=== PATIENT | female | born 1990 | race Caucasian/White ===

== ENCOUNTER 2024-11-22 15:30 | Emergency (ER) | payer BC ==
[~2024-11-22] VITALS: Ht 157.5 cm; Wt 89.4 kg
[2024-11-22 15:34] VITALS: TEMP 97.5
--- NOTE | 2024-11-22 15:37 | ELECTROCARDIOGRAPH REPORT ---
[facility] Test Date: 2024-11-22 Test Time: 15:35:11 Pat Name: JUMANA WASHINGTON Department: [facility] Patient ID: [facility]-[id number] Room: Gender: F Design Sales Consultant: : [id number] Requested By: TAMMY ZAPATA Order Number: [id number] Reading MD: Measurements Intervals [place] Rate: 85 P: -1 ID: 150 QRS: 60 QRSD: 86 T: 12 QT: 358 QTc: 426 Interpretive Statements Sinus rhythm Borderline T abnormalities, anterior leads Baseline wander in lead(s) II,aVF,V3,V6 Please click the below link to view image of tracing.
[2024-11-22 16:02] LABS: MEAN PLATELET VOLUME 8.4 FL (7.4-10.4); RED CELL DISTRIBUTION WIDTH 12.9 % (11.5-14.5)
--- NOTE | 2024-11-22 16:15 | RADIOLOGY REPORT ---
EXAM: DI CHEST,SINGLE VIEW HISTORY: CP TECHNIQUE: 1 view of the chest COMPARISON: None FINDINGS/IMPRESSION: LUNGS: No pleural effusion, consolidation, or pneumothorax MEDIASTINUM: Unremarkable BONES: No acute osseous abnormality OTHER: None
[2024-11-22 16:25] LABS: CREATININE 0.87 MG/DL (0.40-0.90); PRO BRAIN NATRIURETIC PEPTIDE 33 PG/ML (0-125); TOTAL CARBON DIOXIDE 25.6 MMOL/L (24-32); eCRCL 71 ML/MIN; eGFR 74 ML/MIN
--- NOTE | 2024-11-22 19:36 | Physician Documentation ---
History of Present Illness Chief Complaint: See Chief Complaint Stated Complaint: CP Time Seen by MD: 19:16 Source: patient Mode of Arrival: POV, Ambulatory Exam Limitations: no limitations HPI She presents with multiple medical complaints. She states she has had palpitations lasting sec with no associated dizziness. She has history of ventr icular tachycardia ablation in 2016 and was therefore worried and wanted to come in for an EKG. She states she has had palpitations in the past. Has been evaluated by her fish flipper, Dr. Ledesma and told that her symptoms are not secondary to anything dangerous. Furthermore, planes of heartburn. She was seen in urgent care and given prescription for omeprazole yesterday however has not had time to go pick it up. Complains of intermittent burning in her chest associated with lying down. She has a attempted to take Tums, Dennise-[place] and Pepto-Bismol with no relief. Chest pain or pressure. No dizziness, lightheadedness or syncope. Was asked, but otherwise denies review of systems. Medication Reconciliation Allergies: Coded Allergies: Penicillins (Unverified Allergy, Unknown, RASH, 11/22/24) Sulfa (Sulfonamide Antibiotics) (Unverified Allergy, Unknown, 11/22/24) clindamycin (Unverified Allergy, Unknown, RASH, 11/22/24) codeine (Unverified Allergy, Unknown, 11/22/24) Past Medical History Past Medical History: *CARDIOVASCULAR*, Arrhythmia (Ventricular tachycardia status post ablation) Other Past Surgical History: Ventricular tachycardia ablation Alcohol Use: None Drug Use: none Lives In: Home Past Social History: Patient vapes Review of Systems ROS Complains of intermittent palpitations and heartburn symptoms. No abdominal pain. No nausea, vomiting. No diarrhea. Was asked, but otherwise denies review of systems except specifically documented in HPI. Physical Exam Vital Signs: RN Vital Signs have been reviewed: Yes, Temperature: 97.5, Source: Temporal, Heart Rate: 71, Respiratory Rate: 16, BP: 108/65, Pulse Oximetry: 99, Weight: 89.400 Oxygen Flow Rate: 0 Pulse Oximetry Reflects: adequate oxygenation Physical Exam General: Awake, alert, oriented. No apparent distress Neck: Supple. Normal range of motion. No JVD Respiratory: Lungs are clear to auscultation bilaterally. No respiratory distress. Chest: Normal shape and size. No accessory muscle use. Cardiovascular: Regular rate and rhythm. S1-S2. No murmur, gallop, rub. Gastrointestinal: Abdomen is soft. Nontender to palpation. Bowel sounds present. Extremities: No lower extremity edema, cyanosis or clubbing. Psychiatric: Normal mood and affect. Skin: Normal color. Warm and dry. Progress Results/Orders Results/Orders Orders - MARIANNA TINAJERO NP Pantoprazole Tablet (Protonix) (11/22/24 19:30) Vital Signs 11/22/24 11/22/24 11/22/24 15:34 19:10 19:10 Temp 97.5 Pulse 84 71 Resp 18 16 16 B/P (MAP) 113/71 108/65 (79) Pulse Ox 96 99 O2 Flow Rate 0 0 Laboratory Tests Test 11/22/24 15:37 11/22/24 17:52 White Blood Count 12.4 H Red Blood Count 4.35 Hemoglobin 13.6 Hematocrit 40.1 Mean Corpuscular Volume 92.2 Mean Corpuscular Hemoglobin 31.3 H Mean Corpuscular Hemoglobin Concent 34.0 Red Cell Distribution Width 12.9 Platelet Count 366 Mean Platelet Volume 8.4 Neutrophils (%) (Auto) 66.5 Lymphocytes (%) (Auto) 25.9 Monocytes (%) (Auto) 6.7 Eosinophils (%) (Auto) 0.2 Basophils (%) (Auto) 0.7 Neutrophils # (Auto) 8.2 H Lymphocytes # (Auto) 3.2 Monocytes # (Auto) 0.8 Eosinophils # (Auto) 0.0 Basophils # (Auto) 0.1 CBC Comment Sodium Level 139 Potassium Level 3.9 Chloride Level 105 Carbon Dioxide Level 25.6 Anion Gap 8 Blood Urea Nitrogen 10 Creatinine 0.87 Estimated GFR/1.73 m2 74 BUN/Creatinine Ratio 11.5 Glucose Level 89 Calcium Level 9.1 Troponin I High Sensitivity < 4 L < 4 L Troponin I High Sens Percent Delta Troponin I Hi Sens Absolute Change Pro-B-Type Natriuretic Peptide 33 Albumin 4.1 Chemistry Comments EKG/XRAY/CT/US/VASC/MRI EKG : Intepreting Monitor?: Yes Indication: other EKG: NSR EKG Blocks: none Kathleen: normal Hypertrophy: none Additional Comment EKG interpreted by me: Time 3:35 p.m.. Sinus rhythm rate of 85. Normal axis. Nonspecific ST changes. No STEMI. No arrhythmia. Medical Decision Making Findings Patient presented with complaints of palpitations as well as symptoms of heartburn. She states past medical history significant for ventricular tachycardia status post ablation in 2016. She has had ongoing palpitations since then with woke up with her primary fish flipper. States her workup has been normal. Underwent an EKG that shows sinus rhythm. There is no arrhythmia noted. On telemetry she has not been noted to have an arrhythmias well. Vital signs are stable. No dizziness, lightheadedness. States palpitations are nonsustained lasting a few sec at a time. No clinical suspicion for a acute arrhythmia. Underwent laboratory evaluation that revealed that she is not anemic. Her kidney function is normal and she had normal electrolytes. Given this reassuring workup she will be discharged home with outpatient follow up. Warning signs and symptoms were reviewed. She was encouraged to return if any increase in palpitations or if they are sustained or if she is dizzy or lightheaded. For her acid reflux symptoms she states she was seen already by primary care provider. She was given a prescription for omeprazole to treat her symptoms. Unfortunately, she was not able to pick up attendant this medication. There are no high- risk features. No abdominal pain. No fevers or chills. I do not suspect an acute intra-abdominal emergency. Therefore, she was given a dose of Protonix and discharged home encouraged to pick up attendant her prescription. Considered ACS, PE, dissection. Her exam and evaluation are not consistent with acute cardiac, pulmonary or intra-abdominal pathology. The case was discussed with the attending physician, Carlo. The plan of care, diagnostic evaluation and medical decision making were discussed. The attending physician was available for consultation, where the diagnostic findings as well as the eventual disposition. Departure Time of Disposition: 19:34 Disposition: 01 HOME / SELF CARE / HOMELESS Impression: Primary Impression: Palpitations Additional Impression: Acid reflux Qualified Codes: K21.9 - Gastro-esophageal reflux disease without esophagitis Condition: Stable Discharge Instructions: Palpitations, [id number] Additional Instructions: You are complained of palpitations: Your EKG is reassuring today. No arrhythmia. Recommend staying well hydrated. Recommend follow up with your primary fish flipper. As we discussed, return for sustained palpitations, tachycardia or any other concerns. As far as your acid reflux/heartburn symptoms you has been given a dose of Protonix which is similar at two omeprazole. May start your omeprazole tomorrow as prescribed by your doctor. Currently, no evidence of intra-abdominal abnormality. Return for new or worsening symptoms. Referrals: NO PRIMARY CARE PROVIDER (PCP) Education Educated regarding: diagnosis, treatment, need for follow up Signature Scribe Signature: No scribe Attestation: The note accurately reflects work and decisions made by me.Marianna Tinajero - DAIJA 11/22/24 21:51 MARIANNA TINAJERO NP Nov 22, 2024 19:36
[2024-11-22] MEDS: pantoprazole 40mg Tablet.DR PO ONE (19:40)
[2024-11-22 19:43] VITALS: BP 116/70; PULSE 70; RESP 18; O2SAT 99
== END 2024-11-22 19:46 | disposition home or self-care (01) ==
LOC: ER 15:32 → UNDOADMIN 19:24 → ED HOLD 19:24 → ER 19:46
DX: R07.89 Other chest pain (principal); K21.9 Gastro-esophageal reflux disease without esophagitis; Z88.0 Allergy status to penicillin; Z88.1 Allergy status to other antibiotic agents; Z88.5 Allergy status to narcotic agent; Z88.2 Allergy status to sulfonamides
CPT/HCPCS: 36415; 71045; 80048; 83880; 84484; 85025; 93005; 99285; G0378